=== PATIENT | female | born 1960 | race Caucasian/White ===

== ENCOUNTER → 2024-03-11 08:44 | Outpatient (BNVA) | payer MEDICARE, OTHER, SELFPAY | PROVIDERS: Family Provider Family Medicine; PCP Family Medicine; Visit Provider Specialist | DX: R29.90 Unspecified symptoms and signs involving the nervous system (principal); G43.711 Chronic migraine without aura, intractable, with status migrainosus | CPT/HCPCS: 99204 ==

== ENCOUNTER → 2024-06-15 12:21 | Outpatient (BNVA) | payer MEDICARE, OTHER, SELFPAY | PROVIDERS: Family Provider Family Medicine; PCP Family Medicine; Visit Provider Specialist | DX: R29.90 Unspecified symptoms and signs involving the nervous system (principal); G43.711 Chronic migraine without aura, intractable, with status migrainosus | CPT/HCPCS: 99213 ==

== ENCOUNTER → 2024-09-09 14:10 | Outpatient (BNVA) | payer MEDICARE, OTHER, SELFPAY | PROVIDERS: Family Provider Family Medicine; PCP Family Medicine; Visit Provider Specialist | DX: R29.90 Unspecified symptoms and signs involving the nervous system (principal); G43.711 Chronic migraine without aura, intractable, with status migrainosus | CPT/HCPCS: 99213 ==